=== PATIENT | male | born 1945 | race Caucasian/White ===

== ENCOUNTER 2018-10-29 21:32 | Inpatient (IN) | payer OTHER ==
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
--- NOTE | ~2018-10-29 | EKG ---
[place], [place] ELECTROCARDIOGRAM REPORT NAME: HARISH HOLT UNIT #: [id number] ROOM: 315 DOCTOR: ALEXA DRAFT REPORT BIRTHDATE: [birth year] [facility] Test Date: 2018-11-07 Test Time: 09:43:02 Pat Name: HARISH HOLT Department: Room: [facility] 2 Gender: M Orthopaedic Surgeon: Corina Chow : 1945 Requested By: MIMA HARRIS Order Number: [id number] [place] MD: Feliz Dominguez MD Measurements Intervals [place] Rate: 87 P: 53 ND: 153 QRS: -24 QRSD: 85 T: 52 QT: 350 QTc: 421 Interpretive Statements Sinus rhythm Borderline left axis deviation Electronically Signed On 11-07-2018 21:35:09 PST by Feliz Dominguez MD CM:EKGRPT:ELECTROCARDIOGRAM REPORT [id number] MIMA CUNNINGHAM DRAFT REPORT MIMA HARRIS DO
--- NOTE | ~2018-10-29 | PR ---
[place], [place] PROGRESS NOTE NAME: HARISH HOLT UNIT #: [id number] ROOM: 315 DOCTOR: NICK PARKINSON MD BIRTHDATE: [birth year] DOS: 10/31/2018 CHIEF COMPLAINT: "They tell me I've been doing some strange things like wandering around, not knowing what I am doing." SUMMARY OF THE VISIT: The patient was interviewed as he was sitting in his bedroom in the chair. He engaged readily in conversation. He reports to me that he is feeling well, but he is anxious to get to the bottom of what he perceives to be wrong statements stating that he was wandering around aimlessly in his neighborhood. He did seem to be somewhat confused with time and dates. Otherwise, he was relatively pleasant and cooperative. MENTAL STATUS: He is alert and oriented to self, place, not time. Mood does seem to be somewhat depressed with anxious overtones, but he is redirectable with support. There is no hypomania or charline. There is no gross psychosis. Short term memory is problematic. Otherwise, he is intact. PLAN: Routine screening examinations revealed him to have a low vitamin D level of 14.2. I will treat with vitamin D 5000 International Units daily. His vitamin B12 level is low normal at 292. I will go ahead and treat with a vitamin B12 injection of 1000 mcg IM monthly. I will increase his Exelon capsules from 1.5 mg b.i.d. to 3 mg b.i.d. Continue to support and monitor, engage in individual and estrada milieu activities, returning then to the least restrictive environment when psychiatrically stable. NICK PARKINSON MD CM:PNTRANS [id number] NICK PARKINSON MD 10/31/18 1205 interface
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
--- NOTE | ~2018-10-29 | PR ---
[place], [place] PROGRESS NOTE NAME: HARISH HOLT UNIT #: [id number] ROOM: 315 DOCTOR: NICK PARKINSON MD BIRTHDATE: [birth year] DOS: 11/07/2018 INTERVAL NOTE CHIEF COMPLAINT: "I just want to be with my ." SUMMARY OF THE VISIT: The patient was interviewed in his room. He continues to be fixated on leaving the hospital and being with his . I once again tried to redirect that he is hopefully going to the same alf where she is, but again he reiterated that he would like to be in his trailer with her. He does still seem to be somewhat easily agitated and labile. He is tolerating the current medication regimen well. MENTAL STATUS: He is alert and oriented to person, place, not time. Mood does still seem to be labile. Affect inappropriate. There is no charline, hypomania or psychosis, other than some mild paranoia, short-term memory remains problematic. PLAN: I will increase his nighttime Risperdal from 0.5 mg to 1 mg at bedtime. I will check a Neurontin level in the a.m. Continue to engage in individual and estrada milieu activity, returning to the least restrictive environment when psychiatrically stable. NICK PARKINSON MD CM:PNTRANS [id number] NICK PARKINSON MD 11/07/18 1249 interface
--- NOTE | ~2018-10-29 | PR ---
[place], [place] PROGRESS NOTE NAME: HARISH HOLT UNIT #: [id number] ROOM: 315 DOCTOR: NICK PARKINSON MD BIRTHDATE: [birth year] DOS: 11/02/2018 CHIEF COMPLAINT: "Oh, I thought I was going to be able to go home today, can you make that happen." SUMMARY OF THE VISIT: The patient was interviewed once again as he was resting quietly in bed. He did sit up and sit at the edge of his bed and engaged readily in conversation with me. He did report that he has had the opportunity to talk to his on the phone and he is very homesick and wants to be able to leave the hospital to be with her. He voices no other issues. He does have significant short term memory gaps. He also does seem to be tolerating the current medication regimen well. I see no sedation, somnolence, extrapyramidal symptoms or tardive dyskinesia. MENTAL STATUS: He is alert and oriented to person, place, but not necessarily time. Mood does seem to be strongly trending towards euthymia. Affect is more appropriate. There is no charline or hypomania noted. There is no psychosis noted. Short term memory has gaps, otherwise he is intact. PLAN: I will maximize out his dose of rivastigmine capsules to 6 mg twice daily. Continue to support and redirect. Engage in individual and estrada milieu activity, returning to the least restrictive environment when psychiatrically stable. NICK PARKINSON MD CM:PNTRANS [id number] NICK PARKINSON MD 11/02/18 1402 interface
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
--- NOTE | ~2018-10-29 | DS ---
[place], [place] DISCHARGE SUMMARY NAME: HARISH HOLT UNIT #: [id number] ROOM: 315 DOCTOR: NICK PARKINSON MD BIRTHDATE: [birth year] DOS: 11/09/2018 ADDENDUM CHIEF COMPLAINT: "I'm ready to go allyssa, I'm doing my exercise, so I stay strong." SUMMARY OF THE VISIT: The patient was interviewed as he was sitting in the quiet room by himself. He had earlier been doing some calisthenics. He engaged readily in conversation and reported he is ready to go to his new home. He has resigned himself to this fact. He is hoping that his will be able to move in with him. He voiced no other complaints and reports good sleep and appetite. Discharge would have happened sooner; however, between transportation in [facility] not being ready for the patient, he was held up for 1 day. At this point now he is returning to [facility] with the hope that his will be able to be moved in with him ultimately. MENTAL STATUS AT DISCHARGE: The patient is alert and oriented with significant time gaps. Mood for the most part is euthymic. Affect is appropriate. There is no charline, hypomania or gross psychosis. DISCHARGE DIAGNOSES AND DISPOSITION: As per the discharge summary dictated on 11/08/2018. NICK PARKINSON MD CM:DISCHARG [id number] NICK PARKINSON MD 11/09/18 1146 interface
--- NOTE | ~2018-10-29 | PR ---
[place], [place] PROGRESS NOTE NAME: HARISH HOLT UNIT #: [id number] ROOM: 315 DOCTOR: NICK PARKINSON MD BIRTHDATE: [birth year] DOS: 11/01/2018 INTERVAL NOTE CHIEF COMPLAINT: "Oh, I thought I was gonna go home today, maybe you will still let me go." SUMMARY OF THE VISIT: The patient was interviewed as he was once again in his room. He was lying down, but he got up and sat at the edge of his bed and engaged readily in pleasant conversation. The patient reports that he lives in [place], but nurse's report most recently, he has been residing in [place], [place]. He also reports that he thought he would be ready to leave today. He remains pleasantly confused. He does tend to isolate himself and is not engaging in much of the unit activities. Some of this is because of select peers that are rather loud and boisterous and they do seem to be making him rather uncomfortable. Outwardly, he is tolerating the medication well. I see no sedation, somnolence, extrapyramidal symptoms or tardive dyskinesia. MENTAL STATUS: He is alert and oriented to person, place, not necessarily time. Mood does seem to be trending towards euthymia. Affect is more appropriate. There is some delusional system present. He does process conversation slowly at times and short term memory remains poor. PLAN: I will go ahead and increase his Risperdal from 0.25 mg at bedtime to 0.5 mg at bedtime, attempting to stabilize his mood and decrease any impulsivity. While living at home, the patient had a history of wandering and my hope would be that this will decrease this impulsive type behavior. Additionally, I will increase his Exelon capsules from 3 mg twice daily to 4.5 mg twice daily attempting to impact positively on ADL maintenance, behavior and cognition. Meanwhile, will continue to engage in individual and estrada milieu activity, returning then to the least restrictive environment when psychiatrically stable. NICK PARKINSON MD CM:PNTRANS [id number] NICK PARKINSON MD 11/01/18 1321 interface
--- NOTE | ~2018-10-29 | PR ---
[place], [place] PROGRESS NOTE NAME: HARISH HOLT UNIT #: [id number] ROOM: 315 DOCTOR: NICK PARKINSON MD BIRTHDATE: [birth year] DOS: 11/03/2018 CHIEF COMPLAINT: "I am waiting for the word to get out of here. I want to go back to my own home." SUMMARY OF THE VISIT: The patient was interviewed as he was sitting in his room. He had his clothes folded on his lap. He was very much fixated on leaving here and was very upset that his family, specifically his oldest son would suggest that he and his need long-term care placement. He very angrily told me that he had his own place that his trailer was perfectly fine for he and his to live there. I did attempt to redirect and reorient. I offered him food and drink. Eventually, he did state that he would take a milkshake. Since yesterday evening, the patient has been on what appears to be a hunger strike and he did not eat much dinner if at all and did not have breakfast. He seems horribly distraught at the present time. MENTAL STATUS: The patient is alert and oriented to person, place, but not time. Mood does seem to be very depressed. Affect is flat, blunted with some angry overtones. There is no charline or hypomania. There is no gross psychosis. PLAN: Given the fact that his appetite has diminished and he does require a lot of prompting to eat, I will discontinue his Cymbalta in lieu of Remeron 15 mg at bedtime. This should dramatically improve sleep and appetite. I have discussed the case at length with the treatment team and social service assistant and will attempt to redirect and have family redirect him regarding the possibility of moving into [place] [facility] with his . Hopefully, he will come to at least some acceptance of this as in reasonable alternative. We will continue to support and monitor, engage in individual and estrada milieu activity, returning then to the least restrictive environment when psychiatrically stable. NICK PARKINSON MD CM:PNTRANS 1207 1232 NICK PARKINSON MD 11/03/18 1233 interface
[2018-10-30] MEDS ORDERED: MAGNESIUM OXID400 MG PO (00:35)
[2018-10-30] MEDS ORDERED: ASPIRIN CHEWABL81 MG PO (00:36)
[2018-10-30] MEDS ORDERED: ZOCOR40 MG PO (00:37)
[2018-10-30] MEDS ORDERED: CLOPIDOGREL75 MG PO (00:39)
[2018-10-30] MEDS ORDERED: LEVOTHYROXINE100 MC1 PO (00:41)
[2018-10-30] MEDS ORDERED: OMEPRAZOLE20 M2 PO (00:42)
[2018-10-30] MEDS ORDERED: EFFEXOR XR150 MG PO (00:44)
[2018-10-30] MEDS ORDERED: Ipratropium Brom3 ML INH (00:47)
[2018-10-30] MEDS ORDERED: IMDUR SA60 M1 PO (00:47)
[2018-10-30] MEDS ORDERED: NEURONTIN300 MG PO (00:48)
[2018-10-30] MEDS ORDERED: AMIODARONE HYD200 MG PO (00:52)
[2018-10-30] MEDS ORDERED: SEROQUEL50 MG PO (00:53)
[2018-10-30 12:46] VITALS: BP 126/67
[2018-10-30 12:50] VITALS: BP 126/67
--- NOTE | 2018-10-30 13:43 | NUR ---
JONATHONHARISHWalt 73 year old M admitted via stretcher from the OTHER as a voluntary admission. Arrived on unit at 1201. ALLERGIES: OXYCODONE, PROMETHAZINE. Vital signs are: 98.2-65-16 126/67 SPO2 97%RA. The client'S POA VERBALLY CONSENTED TO THE following forms with stated understanding: Authorization For The Release of Medical Information, Clothing List, Consent to Voluntary Admission and Hospitalization, Consent and Release Forms/Receipt of Rights, Acknowledgement of Advance Directive Information, Behavioral Health Consent Form, and Informed Consent of Medications. Admitted under the services of Dr. TESHA MABRYNICK. A search was conducted and hazardous articles were removed. Client was oriented to the unit. LINDA GONSALES
--- NOTE | 2018-10-30 13:47 | NUR ---
CALL PLACED TO HOSPITALIST CELL NUMBER ONE. DR. LEIGH MADE AWARE OF NEW CONSULT FOR MEDICAL MANAGEMENT.
--- NOTE | 2018-10-30 15:44 | NUR ---
completed psychosocial assessment.
[2018-10-30 15:59] LABS: BILIRUBIN NEGATIVE (NEGATIVE); BLOOD TRACE-INTACT (NEGATIVE); CLARITY CLEAR (CLEAR); COLOR YELLOW (YELLOW); GLUCOSE NEGATIVE (NEGATIVE); KETONE TRACE (NEGATIVE); LEUKO ESTERASE NEGATIVE (NEGATIVE); NITRITE NEGATIVE (NEGATIVE); SPECIFIC GRAVITY 1.025 (1.005-1.030); UROBILINOGEN 0.2 E.U./dl (0.2-1.0)
[2018-10-30 16:24] LABS: BACTERIA TRACE
--- NOTE | 2018-10-30 16:46 | NUR ---
PM GROUP/EXERCISES/MEDITATION/AROMATHERAPY PT ATTENDED GROUP AND PARTICIPATED TO BEST OF ABILITY. PT IS HARD OF HEARING AND HAS ONE GOOD EYE THAT PT STATES "ISN'T REALLY THAT GOOD". PT STILL BECOMING ORIENTED TO UNIT AND STATES "I'M TIRED I JUST WANT A NAP" PT WENT TO TAKE A NAP AND RETURNED THE LAST 10 MINUTES OF GROUP. PT WILL CONTINUE TO BE ENCOURAGED TO ATTEND AND PARTICIPATE IN FUTURE GROUP SESSIONS.
--- NOTE | 2018-10-30 16:48 | NUR ---
PERSONAL DAILY GOAL PT GOAL IS TO CONTINUE TO GET ORIENTED TO UNIT ROUTINE AND SCHEDULE.
--- NOTE | 2018-10-30 17:56 | NUR ---
Consulted with unit staff regarding pt admission and updates. Met with pt and explained his daughter in law Tran came to drop off clothes for pt and passed along that she loved him. She is aware pt does not want to visit or speak with her at this time and pt seemed calm while discussing this. Unable to reach family at this time for additional collateral. Pt appeared content and was alert and oriented and thanked this jingle writer for talk.
[2018-10-30 20:00] VITALS: BP 143/62
--- NOTE | 2018-10-30 21:50 | NUR ---
P---DELUSIONS/CONFUSION I---1:1 DONE IN CLIENTS ROOM. OFFERED TO GET CD PLAYER AND TAKE TO QUIET ROOM FOR HIM. EMOTIONAL SUPPORT PROVIDED. WILL MONITOR R--I AM JUST SO BORED. I CAN'T SEE THE TV BECAUSE OF MY SIGHT. I AM NOT ALLOWED TO HAVE MY IPAD SO I CAN WATCH TV. MAYBE MUSIC TOMORROW. DENIES ANY PROBLEMS, QUESTIONS OR NEEDS P--DISCUSS VISUAL DIFFICULTIES WITH MORNING SHIFT. WILL CONTINUE TO PROVIDE EMOTIONAL SUPPORT AND Q 15 MINUTE SAFETY CHECKS
--- NOTE | 2018-10-31 02:01 | NUR ---
24 HR chart check completed.
--- NOTE | 2018-10-31 05:53 | NUR ---
SLEPT WELL FIRST PART OF SHIFT BUT UP EARLY . SLEPT APPROX 6 HOURS.
--- NOTE | 2018-10-31 06:56 | NUR ---
SYNTHROID TABLET NOT HERE FROM PHARMACY
[2018-10-31 07:05] LABS: BASO % 0.4 % (0.0-1.0); EOS # 0.3 10*3/uL (0.0-0.4); EOS % 3.9 % (1.0-4.0); HEMATOCRIT 32.2 % (42.0-52.0); HEMOGLOBIN 10.5 g/dl (14.0-18.0); LYMPH # 0.5 10*3/uL (1.3-4.4); LYMPH % 6.5 % (27.0-41.0); MEAN CELL VOLUME 101.3 fl (80.0-94.0); MEAN CORPUSCULAR HGB CONC 32.6 g/dl (33.0-37.0); MEAN PLATELET VOLUME 8.9 fl (9.6-12.3); MONO % 12.1 % (3.0-9.0); NEUT # 6.1 10*3/uL (2.3-7.9); NEUT % 76.8 % (47.0-73.0); PLATELET COUNT AUTOMATED 332 10*3/uL (130-400); RED BLOOD COUNT 3.18 10*6/uL (4.50-5.90); RED CELL DISTRI WIDTH 13.2 % (0-14.5); WHITE BLOOD COUNT 7.9 10*3/uL (4.8-10.8)
[2018-10-31 07:21] VITALS: BP 138/71
[2018-10-31 07:33] LABS: ALKALINE PHOSPHATASE 91 U/L (45-117); BUN 34 mg/dl (7-24); CHLORIDE 107 mmol/L (98-107); CHOLESTEROL 137 mg/dL (<200); CREATININE 1.27 mg/dL (0.70-1.30); HDL CHOLESTEROL 52 mg/dl (40-60); LDL CHOLESTEROL 68 mg/dL (9-159); SGOT/AST 15 IU/L (3-35); SGPT/ALT 13 U/L (12-78); SODIUM 140 mmol/L (136-145); TOTAL PROTEIN 6.5 gm/dL (6.4-8.2); TRIGLYCERIDES 84 mg/dl (<150); VLDL CHOLESTEROL 17 mg/dL (6-40)
[2018-10-31 07:57] LABS: VITAMIN D, 25-HYDROXY 14.2 ng/mL (30-100)
--- NOTE | 2018-10-31 08:45 | NUR ---
IP jo ann per Blanca at [facility] for 10 days. LCD/NRD 11/08. Auth # [id number]
--- NOTE | 2018-10-31 10:40 | NUR ---
DR. KIRK ON FLOOR TO ASSESS PATIENT. MADE AWARE OF HGB 10.5, HCT 32.2, VITATMIN D LEVEL 14.2, AND CALCIUM 8.1.
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
--- NOTE | 2018-10-31 11:51 | NUR ---
PERSONAL DAILY GOAL PT WILL LEARN NEW COPING SKILL TO ASSIST WITH THE ISSUES OF AGING. PT FRUSTRATED WITH PAIN, BAD HEARING, AND BAD EYESIGHT.
--- NOTE | 2018-10-31 12:24 | NUR ---
PATIENT RECEIVED VITAMIN B12 IM. PATIENT TOOK THE PROCEDURE VERY WELL. PATIENT STATED "YOU DID A GOOD JOB".
--- NOTE | 2018-10-31 12:30 | NUR ---
Shift chart check completed.
--- NOTE | 2018-10-31 14:14 | NUR ---
PHYSICAL THERAPY 1:1 Time: Pain on a scale of 0-10 > Prior to treatment: soreness through R hip/buttocks Post treatment: soreness through R hip/buttocks Progress note: Pt seen on this date for initial physical therapy assessment; please refer to pt's chart for details. Pt performeds supine<->sit I and sit <-> stand I but slow due to pain in R hip/buttocks. He ambulated 100' x 2 in hallway while holding railing in perez. He demonstrated slight limping reporting due to R hip/ buttock pain. He demonstrated decreased balance in standing and weakness through carlos LEs as well. He will benefit from physical therapy for strengthening carlos LEs, increasing standing dynamic balance, and improving gait and stair negotiation. MUNA KENYON S PT
--- NOTE | 2018-10-31 14:16 | NUR ---
P- PATIENT STATED THAT HE KNOWS THAT AT TIMES HE HEARS THINGS THAT ARE NOT THERE. HE STATED THAT THE VOICES SAY REALLY "DISGUSTING" THINGS TO HIM, THAT HE DOES NOT WISH TO REPEAT. PATIENT REFUSED TO TELL ME WHAT THE VOICES SAY. DENIES ANY COMMAND HALLUCINATIONS. PATIENT ALERT AND ORIENTED X3, UNAWARE OF HIS SITUATION OF WHY HE IS HERE. PATIENT STATED "THEY SAY I WONDER AROUND, I DO NOT BELIEVE THAT". PATIENT ISOLATING SELF TO ROOM. I- 1:1 INTERACTION WITH EMOTIONAL SUPPORT PROVIDED. ASSESSED PATIENT FOR HALLUCINATIONS, DELUSIONS, SI, HI, OR PAIN. ASSESSED FOR COMMAND HALLUCINATIONS. ATTEMPTED TO ASSESS WHAT THE VOICES ARE TELLING THE PATIENT. REORIENT PATIENT TO SITUATION OF WHY HE HIS HERE IN THE HOSPITAL. ENCOURAGE PATIENT TO JOIN GROUP, JOIN ACTIVITIES WITH PEERS, INTERACT WITH PEERS, INTERACT WITH STAFF. PROVIDE PATIENT HIS MEDICATIONS ON TIME WITH EDUCATION PROVIDED. ASSESS PATIENTS MOOD. R- PATIENT READILY ENGAGED IN CONVERSATION WITH STAFF WHEN SPOKEN TO. PATIENT DENIED DELUSIONS, SI, HI, OR PAIN. DENIES ANY OTHER HALLUCINATIONS OTHER THAN AUDITORY HALLUCINATIONS. REFUSED TO TELL THIS NURSE WHAT THE VOICES TELL HIM. DENIES COMMAND HALLUCINATIONS. WHEN REORIENTED PATIENT TO SITUATION PATIENT SMILED AND STATED "I DO NOT BELIEVE IT". PATIENT JOINED ONE GROUP SESSION TOWARDS THE END RIGHT BEFORE LUNCH ARRIVED. NO INTERACTION WITH OTHER PEERS. AFTER LUNCH PATIENT WENT BACK TO HIS ROOM AND LAYING DOWN. WHEN WENT BACK TO ENCOURAGE TO COME TO GROUP AGAIN, PATIENT STATED THAT HE JUST IS NOT UP TO IT. PATIENT WENT FOR A TEN MINUTE WALK DOWN THE HALLWAY, AND WENT BACK INTO HIS ROOM. P- CONTINUE TO MONITOR PATIENTS HALLUCINATIONS AND IF COMMAND HALLUCINATIONS ARE OCCURRING. REORIENT PATIENT TO HIS SITUATION WHEN NECESSARY. ENCOURAGE TO JOIN GROUP AND ACTIVITIES WITH PEERS. ENGAGE IN CONVERSATION WITH STAFF AND PEERS. 1:1 INTERACTION WITH EMOTIONAL SUPPORT WHEN NECESSARY. PROVIDE WITH MEDICATIONS AND THERAPIES PRESCRIBED BY THE PHYSICIAN. Q15 MINUTE CHECKS MAINTAINED FOR SAFETY.
--- NOTE | 2018-10-31 14:32 | NUR ---
Spoke with Patient Daughter Charity concerning Discharge Plans. She is taking a tour of [facility] today and would like referral sent to them for Oxyacetylene Burner Care Placement.
--- NOTE | 2018-10-31 15:18 | NUR ---
HENS Completed online. PASRR submitted successfully. Validation Complete. Document is being referred to [facility] for further review. Faxed Documentation to [facility] . Will Follow.
--- NOTE | 2018-10-31 15:31 | NUR ---
Thao from [facility] calls to say that she received referral and have no available appropriate beds at this time.
--- NOTE | 2018-10-31 15:32 | NUR ---
Call placed to [facility]. Male Beds Available. Referral faxed to [facility].
--- NOTE | 2018-10-31 15:33 | NUR ---
PM GROUP/MOVIE PT CHOSE NOT TO ATTEND GROUP AND SLEPT IN BED. PT WILL CONTINUE TO BE ENCOURAGED TO ATTEND AND PRATICIPATE IN FUTURE GROUP SESSIONS.
[2018-10-31 20:00] VITALS: BP 112/56
--- NOTE | 2018-11-01 00:45 | NUR ---
P---ISOLATIVE/ HELPLESS I--EMOTIONAL SUPPORT. ALLOWED CLIENT TO VENT NEEDS, FEARS AND REQUESTS. ENCOURAGED CLIENT TO STAY OUT OF HIS ROOM DURING THE DAY AND PARTAKE IN THE ACTIVITIES AND THERAPIES THE UNIT IS OFFERING R--OH MY BACK HURT TODAY SO I STAYED IN HERE AND WAS BORED. I WILL SEE TOMORROW WHAT I WANT TO DO P--CONTNUE TO ENCOURAGE CLIENT TO PARTICIPATE IN THERAPY AND GROUPS.
--- NOTE | 2018-11-01 04:36 | NUR ---
24 HR chart check completed.
--- NOTE | 2018-11-01 07:15 | NUR ---
PHYSICAL THERAPY Patient seen this am for therapy visit and was sitting in activity room sofa chair upon therapist arrival. Patient voices no new c/o's and was quite pleasant this morning. Patient treated with [facility] staff observation and transfers all with Supervision. Patient ambulates without AD, 75'x 2, use of single handrail support in hallway, SBA, demonstrating good dioni and no LOB. Patient also completed backward walk, 5'x 2 and several 180 / 360 turns, SBA, with "cautious" upright posture. Patient returned to activity room chair and remained awaiting breakfast under [facility] staff Supervision. Will continue per POC as tolerated, total treatment time 17 minutes. Fede Argueta, CONTROL PANEL TESTER
[2018-11-01 08:06] VITALS: BP 126/68
--- NOTE | 2018-11-01 08:16 | NUR ---
ON UNIT TO ASSESS PT.
--- NOTE | 2018-11-01 08:30 | NUR ---
Treatment Plan meeting with Dr. Horton, RN, AT, SW and Cio. Plan for discharge at the end of the week. Pt. is for Half-Way placement at request of Daughter. Referrals have been sent to [facility] and [facility].
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
--- NOTE | 2018-11-01 12:09 | NUR ---
PERSONAL DAILY GOAL PT DID NOT COME OUT OF HIS ROOM THIS MORNING AND NO GOAL HAS BEEN SET. WILL ATTEMPT THIS AFTERNOON.
--- NOTE | 2018-11-01 12:10 | NUR ---
AM GROUP/FOCUS ON TASK PT DID NOT ATTEND MORNING GROUP THERAPY. PT WAS IN BED SLEEPING.
--- NOTE | 2018-11-01 15:00 | NUR ---
Miriam from [facility] here to see patient onsite. Unable to do Face to Face assessment at this time. Provided with updates. Vincent is currently reviewing the referral.
--- NOTE | 2018-11-01 15:06 | NUR ---
P:ISOLATIVE TO ROOM-ONLY COMING OUT FOR MEALS WITH ENCOURAGEMENT DEPRESSED MOOD I: ENCOURAGE PT TO PARTICIPATE IN GROUPS/ACTIVITES, ENCOURAGE SOCIALIZATION WITH STAFF AND PEERS, PROVIDE EMOTIONAL SUPPORT AND 1:1 FOR PT TO VOICE FEELIGNS R: PT STATED "I WANT TO GO HOME CAN YOU HELP ME WITH THAT? I DON'T WANT TO COME OUT RIGHT NOW." P: CONTINUE TO PROVIDE EMOTIONAL SUPPORT AND 1:! FOR PT TO VIOC[place] FEELINGS, ENCOURAGE PARTICIPATION IN GROUPS/ACTIVITIES, ENCOURAGE SOCIALIZATION WITH STAFF AND PEERS, MONITOR PT BEHAVIORS ON Q15 MIN SAFETY CHECKS PT ALERT TO PERSON, PLACE AND TIME. PT MED COMPLIANT WITHOUT DIFFICULTY, MED EDUCATION PROVIDED. PT CALM, ISOLATIVE TO ROOM, ONLY COMING OUT FOR MEALS WITH ENCOURAGEMENT. PT PLEASANT WITH STAFF. NO HALLUCINAITONS OR DELUSIONS NOTED. PT DENIES ANY HOMICIDAL/SUICIDAL THOUGHTS. PT AMBULATORY, GAIT STEADY. PT CONTINENT OF BOWEL AND BLADDER.
--- NOTE | 2018-11-01 15:49 | NUR ---
PM GROUP/MUSIC AND SOCIALIZATION PT DID NOT ATTEND AFTERNOON GROUP THERPAY. PT STAYED IN ROOM IN BED.
--- NOTE | 2018-11-01 16:41 | NUR ---
Pt demonstrates progress towards goals with HOT DOG VENDOR reporting good progress continues with plan to extend goals at this time until 11/10/18. Garima Rajan, PT
[2018-11-01 19:50] VITALS: BP 128/66
--- NOTE | 2018-11-01 22:25 | NUR ---
P---ISOLATIVE I--MEDICATED PER ORDERS. 1:1 WITH CLIENT TO ALLOW TIME TO VENT NEEDS, FEARS AND WANTS. DISCUSSED IMPORTANCE OF INTERACTING WITH PEERS OR AT LEAST BE IN THE DININGROOM WITH OTHERS WITHOUT INTERACTING. R- OH I AM GOOD. FEEL BETTER SINCE YOU KNOW WHO LEFT. MAYBE I WILL COME OUT TOMORROW P--CONTINUE EMOTIONAL SUPPORT AND ENCOURAGEMENT TO INTERACT. MONITOR FOR ANY CHANGES
--- NOTE | 2018-11-02 01:24 | NUR ---
24 HR chart check completed.
--- NOTE | 2018-11-02 07:30 | NUR ---
PHYSICAL THERAPY Patient seen this am for therapy visit and was in hallway near nurses station upon therapist arrival. Patient had just finished TOBIAS visit as OT Data Support Specialist was present for observation only during entire therapy session. Patient voices no new c/o's and ambulates without AD, 165'x 1, Supervision and demonstrates improved steady gait pattern. Patient still a little cautious during 180 turns and reports mild R hip pain > 125 feet. Patient returned to and remained in activity room chair awaiting breakfast under [facility] staff Supervision. Will continue per POC as tolerated to improve dynamic standing balance with increased activity tolerance. Total treatment time 15 minutes. Fede Argueta, HARD ROCK DRILL OPERATOR
[2018-11-02 08:00] VITALS: BP 130/57
--- NOTE | 2018-11-02 08:30 | NUR ---
Treatment Plan meeting with Dr. Horton RN, AT, SW and Farm Equipment Mechanic Apprentice. Plan for discharge Next week. Referrals have been sent for LTC placement Medicaid Pending.
--- NOTE | 2018-11-02 09:32 | NUR ---
PERSONAL DAILY GOAL INTERPERSONAL INTERACTIONS PT HAS BEEN ISOLATIVE TO ROOM. PT STATED, "I WILL COME TO GROUP TODAY"
--- NOTE | 2018-11-02 12:05 | NUR ---
AM GROUP/CURRENT EVENTS/FOCUS GROUP PT WAS ENCOURAGED TO ATTEND MORNING GROUP THERAPY AND CAME DOWN AND STOOD OUTSIDE THE ROOM LOOKING IN THE WINDOW AT THE GROUP. PT MOTIONED FOR ME TO COME OUT AND STATED, "I AM HARD OF HEARING AND DON'T SEE TOO WELL. DO I HAVE TO COME IN THERE? IT'S JUST TOO HARD FOR ME" PT WAS TOLD THAT HE DID NOT HAVE TO ATTEND BUT THAT I WOULD LIKE HIM TO. PT DECLINED. PT WILL BE FURTHER ENCOURAGED TO ATTEND. PT STATED, "I JUST WANT TO GO HOME TO BE WITH MY AND MY TWO DOGS."
--- NOTE | 2018-11-02 14:38 | NUR ---
Patient not available for Occupational Therapy as he is in group therapy session. Rosemarie Martinez OTR/L
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
--- NOTE | 2018-11-02 15:51 | NUR ---
PM GROUP/CREATIVE OUTLETS PT CHOSE NOT TO ATTEND AFTERNOON GROUP THERAPY. PT CHOSE TO STAY IN BED AND NAP.
--- NOTE | 2018-11-02 17:32 | NUR ---
P: ISOLATIVE TO ROOM, DEPRESSED MOOD I: ENCOURAGE PT TO PARTICIPATE IN GROUPS/ACTIVITIES, ENCOURAGE SOCIALIZATION WITH STAFF AND PEERS, PROVIDE EMOTIONAL SUPPORT AND 1:1 FOR PT TO VOICE FEELINGS R: PT REFUSED TO PARTICIPATE IN GROUPS/ACTIVITIES, ONLY COMING OUT FOR MEALS P: CONTINUE TO ENCOURAGE PT TO PARTICIPATE IN GROUPS/ACTIVITIES, ENCOURAGE SOCIALIZATION WITH STAFF AND PEERS, CONTINUE TO PROVIDE EMOTIONAL SUPPORT AND 1:1 FOR PT TO VOICE FEELINGS PT ALERT TO PERSON, PLACE, TIME AND SITUATION. PT MED COMPLIANT WITHOUT DIFFICULTY, MED EDUCATION PROVIDED. NO HALLUCINATIONS OR DELUSIONS NOTED. PT DENIES ANY SUICIDAL THOUGHTS. PT AMBUALTORY THROUGHOUT UNIT, GAIT STEADY. PT CONTINENT OF BOWEL AND BLADDER.
[2018-11-02 20:02] VITALS: BP 145/65
--- NOTE | 2018-11-02 23:35 | NUR ---
24 HR chart check completed.
--- NOTE | 2018-11-03 06:32 | NUR ---
PATIENT SLEPT 1 HOUR INTERRUPTED THROUGHOUT SHIFT. Q 15 MINUTE CHECKS MAINTAINED
[2018-11-03 08:01] VITALS: BP 160/82
--- NOTE | 2018-11-03 08:30 | NUR ---
Treatment Plan meeting with Dr. Horton, RN, AT, SW and Marine Plumber. Plan for discharge Wednesday if PASRR returns. Refferals have been sent to [facility] and [facility].
--- NOTE | 2018-11-03 08:40 | NUR ---
PT REFUSING TO COMMUNICATE WITH NURSE THIS AM. STATES "I WAS SUPPOSED TO GO HOME TWO DAYS AGO". PT IS ARGUMENTATIVE, SITTING IN CHAIR IN HIS ROOM WITH CLOTHES ON LAP. PT REDIRECTED, ATTEMPTED TO PROVIDED 1:1 AND EDUCATE PT ON CURRENT DISCHARGE STATUS AND POTENTIAL PLACEMENT AT [facility] WITH . PT UNABLE TO BE REDIRECTED. PT IS ANGRY THAT HE IS NOT HERE. CONTINUES TO STATE "JUST CHECK THE PAPERWORK! I'VE BEEN DISCHARGED ALREADY". WILL CONTINUE TO ATTEMPT TO REDIRECT PT NECESSARY. WILL REAPPROACH PT NEEDED. PROVIDE EMOTIONAL SUPPORT FOR PT ALLOWED. ENCOURAGE MEDICATION COMPLIANCE AND VERBALIZATION OF FEELINGS.
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
--- NOTE | 2018-11-03 10:35 | NUR ---
Shift chart check completed.
--- NOTE | 2018-11-03 12:12 | NUR ---
AM GROUP/INTERPERSONAL INTERACTIONS PT REFUSED TO ATTEND MORNING GROUP THERAPY. PT IS VERY IRRATATED TO BE HERE AND JUST WANTS TO GO HOME.
--- NOTE | 2018-11-03 14:18 | NUR ---
Spoke with Eunice at [facility]. Advised her that Dr. Horton had said in Meeting that he had spoken with her and told her that he felt patient was appropriate for [facility] and assured her that patient could return if he developed behaviors at facility. Eunice states that she is willing to accept patient on conditional basis once PASRR returns and to keep her updated of pt. progress here in the Behavioral Health Unit.
--- NOTE | 2018-11-03 15:50 | NUR ---
PM GROUP/STRESS REDUCTION PT WAS SITTING IN HIS ROOM IN A CHAIR AND WAS ENCOURAGED TO PARTICIPATE IN AFTERNOON GROUP. PT DECLINED STATING, "I JUST WANT TO GO HOME, I'M TIRED OF BEING HERE"
[2018-11-03 20:00] VITALS: BP 151/64
--- NOTE | 2018-11-03 23:10 | NUR ---
24 HR chart check completed.
--- NOTE | 2018-11-04 06:21 | NUR ---
PATIENT SLEPT 7 HOURS THROUGHOUT UNINTERRUPTED SHIFT. Q 15 MINUTE CHECKS MAINTAINED
[2018-11-04 08:16] VITALS: BP 138/72
--- NOTE | 2018-11-04 08:30 | NUR ---
Treatment Plan meeting with Dr. Horton, RN, AT, SW and Head Men'S Golf Coach. Plan for discharge Wednesday. Referrals with Updates have been faxed to [facility].
--- NOTE | 2018-11-04 08:35 | NUR ---
PHYSICAL THERAPY Patient seen this am for therapy visit and was sitting in quiet room follwoing OT evaluation upon therapist arrival. Patient reports chronic B knee pain with L > R at 3/10 during prolonged standing actiivities. [facility] staff member present for observation only during therapy session as patient trannsfers sit to stand Independently and ambulates Supervision with single handrail support. Patient states he feels more comfortable holding on to any railing secondary to decreased vision from prior history of Macular Degeneration. Patient demonstrated slow steady stride with no LOB this session x 15O feet and only mild fatigue noted. Patient remained in hallway at window following treatment under [facility] staff Supervision and will continue per POC as tolerated, total treatment time 14 minutes. Fede Argueta, CORRECTIONAL MANAGER
--- NOTE | 2018-11-04 10:30 | NUR ---
Clinical Updates faxed to [facility] and [facility].
--- NOTE | 2018-11-04 11:52 | NUR ---
PATIENT IS ALERT TO PERSON, PLACE AND SITUATION; ABLE TO RECALL MONTH/YEAR WITH SLIGHT CONFUSION. MOOD IS DEPRESSED; ISOLATES IN ROOM AFTER MEALS; ENCOURAGED TO PARTICIPATE IN GROUP SESSION AND TO COME OUT OF ROOM TO SOCIAL WITH STAFF AND OTHER PATIENTS. DENIES ANY HALLUCINATIONS, DELUSIONS, HI/SI OR PAIN. MEDICATION EDUCATION PROVIDED, COMPLAINT WITH MEDICINES. Q 15 MINUTE SAFETY CHECKS MAINTAINED. 1 PERSON ASSIT WITH CUEING FOR ACTIVITIES OF DAILY LIVING, CONTINENT OF BOWEL AND BLADDER, SET UP FOR MEALS, INTAKES ARE IMPROVING; ENCOURAGE PO INTAKES. PATIENT IS INTERACTIVE WITH STAFF. AMBULATORY WITH STEADY GAIT. CONTINUE TO MONITOR FOR HALLUCINATIONS/DELUSIONS. NO AGGRESSION OBSERVED. P: ISOLATIVE/WITHDRAWN STAYS IN ROOM AFTER MEALS I: PROVIDE ONE ONE ONE, ENCOURAGE GROUP PARTICIPATIONS R: PATIENT REMAINS IN ROOM, DID NOT PARTICIPATE IN MORNING GROUP P: CONTINUE TO ENCOURAGE GROUP SESSION AND SOCIAL INTERACTIONS WITH STAFF AND OTHER PATIENTS.
--- NOTE | 2018-11-04 12:00 | NUR ---
PASRR returns. Pt. may enter Nursing facility at discharge. Copy placed on chart.
--- NOTE | 2018-11-04 12:20 | NUR ---
AM GROUP/ EXERCISES/ART/GAME PT DID NOT ATTEND OR PARTICIPATE IN GROUP. PT CONTINUES TO ISOLATE SELF IN ROOM. PT WILL CONTINUE TO BE ENCOURAGED TO ATTEND AND PARTICIPATE IN FUTURE GROUP SESSIONS.
--- NOTE | 2018-11-04 14:31 | NUR ---
Occupational Therapy evaluation completed on 3 with full eval to follow. Precautions include 3N unit precautions, impaired cognition, low vision deficits. Patient is low complexity level 93070 via chart review, testing and evaluation. Recommend no further OT but 24hr supervision and assist in IADLs d/t low vision and impaired cognition. Thank you for this referral. Karon Martinez OTR/L
--- NOTE | 2018-11-04 17:20 | NUR ---
Offered support and counseling regarding loss as pt is struggling to accept going to a [facility] and his going to a [facility] and all of their health deteriorating as well as losing his camper and dogs etc. Pt seemed in better spirits today and was able to communicate more about his feelings. CAlled Rebecca back regarding plan for visitation as well as family planning to bring his in for a visit this weekend. Also indicated pt request for heavy sweats/socks. Some of pts children want to visit prior to flying back to [place]-where they live and pt declined at this time. Informed pt that his will try and come visit this weekend and provided large print word searches and collaborated with associate merchandise planner and nurses regarding updates.
[2018-11-04 19:30] VITALS: BP 117/62
--- NOTE | 2018-11-04 23:47 | NUR ---
P-ISOLATIVE I-1:1 PROVIDED FOR PATIENT TO EXPRESS FEELINGS. PATIENT ALSO EDCUATED ON IMPORTANCE OF INTERACTING WITH PEERS AND STAFF. ENCOURAGE MEDICATION COMPLIANCE. R- PT MEDCIATION COMPLIANT WITHOUT DIFFICULTY. PT ALSO RECEPTIVE TO 1:1 AND EDUCATION, PT STATED "ILL GO INTO THE DINING ROOM MORE IF THEY WOULD MAKE ME A CROSSWORD PUZZLE WITH LARGER LETTERS SO I CAN SEE, IF YOU CAN DO THAT I WOULD APPRECIATE IT". PATIENT MEDICATION COMPLIANT WITHOUT DIFFICULTY.NO AGITATION OR IRRITABILITY NOTED. NO PHYSICAL COMPLAINTS VOICED. P-CONTINUE EMOTIONAL SUPPORT AND ENCOURAGEMENT TO INTERACT, ENCOURAGE MEDICATION COMPLIANCE. Q 15 MIN SAFETY CHECKS.
--- NOTE | 2018-11-05 06:15 | NUR ---
PATIENT OBSERVED ON Q 15 MIN CHECKS TO HAVE SLEPT APPROX 8 HOURS WITH NO AWAKENINGS OR SIGNS AND SYMPTOMS OF DISTRESS NOTED.
--- NOTE | 2018-11-05 06:26 | NUR ---
24 HOUR CHART CHECK COMPLETED.
[2018-11-05 08:00] VITALS: BP 157/82
--- NOTE | 2018-11-05 12:17 | NUR ---
AM GROUP/EXERCISE AND BRAIN GAMES PT CHOSE NOT TO ATTEND MORNING GROUP THERAPY. PT CHOSE TO STAY IN HIS ROOM
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
--- NOTE | 2018-11-05 15:56 | NUR ---
PM GROUP/LEISURE INTERESTS PT CHOSE NOT TO ATTEND AFTERNOON GROUP THERAPY DESPITE ENCOURAGEMENT FROM NURSE. PT CHOSE TO STAY IN ROOM
--- NOTE | 2018-11-05 16:12 | NUR ---
DR MEDINA ON UNIT TO SEE PT
[2018-11-05 20:16] VITALS: BP 142/76
--- NOTE | 2018-11-06 02:12 | NUR ---
P-ISOLATIVE I- PROVIDE 1:1 FOR PATIENT TO EXPRESS FEELINGS, REITERATE IMPORTANCE OF INTERACTING WITH STAFF AND PEERS. ENCOURAGE MEDICATION COMPLIANCE. R- PT MEDICATION COMPLIANT WITHOUT DIFFICULTY AFTER REVIEW. PT VERBALIZED UNDERSTANDING ON IMPORTANCE OF INTERACTING WITH STAFF AND PEERS, STATING "YEAH I GET IT, BUT IM READY FOR BED". NO PHYSICAL COMPLAINTS VOICED. P-CONTINUE EMOTIONAL SUPPORT AND ENCOURAGEMENT TO INTERACT, ENCOURAGE MEDICATION COMPLIANCE. MAINTAIN Q 15 MIN SAFETY CHECKS.
--- NOTE | 2018-11-06 04:24 | NUR ---
24 HOUR CHART CHECK COMPLETED.
--- NOTE | 2018-11-06 06:20 | NUR ---
PATIENT OBSERVED ON Q 15 MIN CHECKS TO HAVE SLEPT APPROX 6 HOURS WITH NO AWAKENINGS OR SIGNS AND SYMPTOMS OF DISTRESS NOTED.
[2018-11-06 07:31] VITALS: BP 136/67
--- NOTE | 2018-11-06 10:47 | NUR ---
ON UNIT TO ASSESS PT.
--- NOTE | 2018-11-06 15:28 | NUR ---
P: PT ISOALTIVE TO ROOM- COMING OUT FOR MEALS, REFUSING TO PARTICIPATE IN GROUP, DEPRESSED MOOD I: ENCOURAGED PT TO PARTICIPATE IN GROUPS/ACTIVITIES, MONITOR PT BEHAVIORS ON Q15 MIN SAFETY CHECKS R: PT CONTINUED TO REFUSE TO PARTICIPATE IN GROUPS/ACTIVITIES, COMING OUT ONLY FOR MEALS P: CONTINUE TO ENCOURAGE SOCIALIZATION WITH STAFF AND PEERS, ENCOURAGE PARTICIPATION IN GROUP PT ALERT TO PERSON, PLACE AND TIME. PT MED COMPLIANT WITHOUT DIFFICUTLY, MED EDUCATION PROVIDED, MED EDUCATION PROVIDED. PT AMBULATORY THROUGHOUT UNIT, GAIT STEADY. PT CONTINENT OF BOWEL AND BLADDER.
--- NOTE | 2018-11-06 16:42 | NUR ---
PM GROUP/EXERCISES/ART/DAILY POSITIVITY PT ENCOURAGERD TO ATTEND BUT REMAINED IN BED AND NEVER CAME TO GROUP. PT WILL CONTINUE TO BE ENCOURAGED TO ATTEND AND PARTICIPATE IN FUTURE GROUP SESSIONS.
--- NOTE | 2018-11-06 16:56 | NUR ---
PT REFUSING TO COME TO DINNER STATED TO ,DEB STAFF "I JUST DON'T KNOW WHAT TO DO." THIS NURSE APPROACHED PT WHO WAS SITTING IN THE CHAIR IN HIS ROOM WITH HIS SHOES ON. WHEN ASKED PT WHAT WAS GOING ON HE STATED "ARE THEY DOWN THERE WITH A WHEELCHAIR? I AM SUPPOSED TO GO HOME TODAY, MY DAUGHTER HAS THE PAPERWORK." ATTEMPTED TO PRESENT REALITY TO PT THAT WE ARE UNABLE TO DISCHARGE ON THE WEEKEND PT STATED "NO MY DAUGHTER HAS THE PAPERWORK IT WAS ALL SET UP." CONTINUED TO PRESENT REALITY WITHOUT SUCCESS, PT STATED "FINE, I'M NOT GOING TO ARGUE WITH YOU." ENCOURAGED PT TO COME TO THE DINING ROOM FOR DINNER, PT STATED "NOT RIGHT NOW". PLAN IS TO CONTINUE TO ENCOURAGE PT TO COME TO THE DINING ROOM FOR DINNER, PROVIDE EMOTIONAL SUPPORT AND 1:1 FOR PT TO VOICE FEELINGS, MONITOR PT BEHAVIORS ON Q15 MIN SAFETY CHECKS.
[2018-11-06 19:53] VITALS: BP 128/69
--- NOTE | 2018-11-07 04:30 | NUR ---
P- ISOLATIVE, ST/LT MEMORY DEFICITS, PT OBSERVED BY STAFF PLACING HIS BELONGINGS UNDER SHIRT AND ATTEMPTING TO GO DOWN HALLWAY X2. PT ALSO STATED TO STAFF STATING "IM WAITING FOR MY TABLE COVER FOLDER". I- PROVIDE 1:1 FOR PATIENT TO VOICE THOUGHTS, FEARS, AND NEEDS. REORIENT AND REDIRECT NEEDED. MONITOR PT BEHAVIORS ON Q15 MIN SAFETY CHECKS. ENCOURAGE MEDICATION COMPLIANCE. R- PATIENT NOT RECEPTIVE TO 1:1 AND REORIENTATION, GUARDED, RETURNS TO ROOM AND BED WHEN APPROACHED BY STAFF. MEDICATION COMPLIANT WITHOUT DIFFICULTY. NO COMPLAINTS VOICED. P- CONTINUE TO PROVIDE 1:1 AND EMOTIONAL SUPPORT. REORIENT AND REDIRECT NEEDED. MONITOR BEHAVIORS ON Q 15 MIN CHECKS.
--- NOTE | 2018-11-07 05:20 | NUR ---
24 HOUR CHART CHECK COMPLETED.
--- NOTE | 2018-11-07 05:53 | NUR ---
PATIENT OBSERVED ON Q 15 MIN CHECKS TO HAVE SLEPT APPROX 3 HOURS INTERRUPTED THIS SHIFT WITH MULTIPLE AWAKENINGS NOTED DURING STAFF CHECKS. PT REDIRECTED X1 TO RETURN TO BED WHEN PATIENT OBSERVED ATTEMPTING TO LAYING ON FLOOR WITH A BLANKET AND PILLOW IN ROOM. NO SIGNS OR SYMPTOMS OF DISTRESS NOTED.
[2018-11-07 08:00] VITALS: BP 131/67
--- NOTE | 2018-11-07 08:15 | NUR ---
Treatment Plan meeting with Dr. Horton, RN, AT, SW and National Account Executive. Plan for discharge Wednesday. Pending Placement at [facility] with his for LTC.
--- NOTE | 2018-11-07 08:46 | NUR ---
RN ENTERED ROOM AND PT PRESENTED BASIN TO HER STATED "I THREW UP", NURSE OBSERVED SMALL EMESIS OF UNDIGESTED FOOD IN BASIN. WILL CONTINUE TO MONITOR.
--- NOTE | 2018-11-07 09:00 | NUR ---
Updates faxed to [facility] Attn:
--- NOTE | 2018-11-07 09:11 | NUR ---
PHYSICAL THERAPY Patient was resting in bed this am when approached by 2 therapist and U staff member. Patient reports feeling very sick, with nausea, upset stomach and recent bout of Emesis. Nurse notified of patient c/o and no therapy provided this date. Will continue per POC as able. Fede Argueta, BUSINESS STRATEGY MANAGER
--- NOTE | 2018-11-07 09:15 | NUR ---
PT CAME TO DESK, ASKING TO CALL HIS DAUGHTER AND THE DOCTOR, PT STATED "I FEEL LIKE I'M HAVING A HEART ATTACK." VS [id number]. NOTIFIFED DR. HARRIS AT 0919- VERBAL ORDERS RECEIVED FOR STAT EKG AND TROPONIN.
--- NOTE | 2018-11-07 09:53 | NUR ---
DR. BELLA NOTIFIED OF EKG RESULT COMPLETED FOR REVIEW.
--- NOTE | 2018-11-07 12:02 | NUR ---
AM GROUP/EXERCISES/GAMES PT ATTENDED LAST 25 MINUTES OF GROUP BUT DID NOT PARTICIPATE. PT ENCOURAGED BUT STATES "I'M BASICALLY BLIND, I CANT DO ANYTHING" PT CONVERSATES WITH PEER THE LAST PART OF GROUP. PT WILL CONTINUE TO BE ENCOURAGED TO ATTEND AND PARTICIPATE TO BEST OF ABILITY IN FUTURE GROUP SESSIONS.
--- NOTE | 2018-11-07 12:31 | NUR ---
P: PT ISOALTIVE TO ROOM, ONLY COMING OUT FOR MEALS, DEPRESSED MOOD I: ENCOURAGED PT TO PARTICIPATE IN GROUPS/ACTIVITIES, ENCOURAGE SOCIALIZATION WITH STAFF AND PEERS R: PT WENT INTO GROUP FOR THE LAST 25 MINS BUT DID NOT PRTICIPATE. P: CONTINUE TO ENCOURAGE SOCIALIZATION WITH STAFF AND PEERS, ENCORUAGE PARTICIPATION IN GROUPS/ACTIVITIES, MONITOR PT BEHAVIORS ON Q15 MIN SAFETY CHECKS PT ALERT TO PERSON, PLACE AND TIME. PT MED COMPLIANT WITHOUT DIFFICULTY, MED EDUCATION PROVIDED. PT CALM, PLEASANT AND COOPERATIVE WITH STAFF. NO HALLUCINATIONS OR DELUSIONS NOTED. PT GOAL DIRECTED TOWARDS DISCHARGE STATING "I JUST WANT TO GO AND SEE MY ". PT DENIES ANY SUICIDAL/HOMICIDAL THOUGHTS. PT AMBULATORY THROUGHOUT UNIT, GAIT STEADY. PT CONTINENT OF BOWEL AND BLADDER.
--- NOTE | 2018-11-07 12:38 | NUR ---
Spoke with Eunice at [facility]. Unable to accept patient at this time due to exit seeking behaviors. Facility has no [facility] and she feels that Pt. is a risk for elopement. Spoke with Miriam at [facility] who is reviewing Referral that was previously sent.
--- NOTE | 2018-11-07 14:02 | NUR ---
Spoke with Miriam at [facility]. Pt. accepted at [facility]. Advised Pt. Power of Watch Repairer Charity Vuong of acceptance to [facility]. Faxed Updates to [facility] Attn: Miriam.
--- NOTE | 2018-11-07 16:07 | NUR ---
PM GROUP/ LEISURE ACTIVITY PT ATTENDED LAST 10 MINUTES OF GROUP LISTENING TO [employer] MUSIC. PT WILL CONTINUE TO BE ENCOURAGED TO ATTEND AND PARTICIPATE IN FUTURE GROUP SESSIONS
[2018-11-07 20:08] VITALS: BP 132/84
--- NOTE | 2018-11-07 23:15 | NUR ---
P-CONFUSION AND AGITATION. PATIENT WITH SHORT TERM AND ENERGY ADMINISTRATOR MEMORY LOSS. PATIENT WITH NO SUICIDAL OR HOMICIDAL IDEATIONS. PATIENT WITH NO HALLUCINATIONS OR DELUSIONS. PATIENT PREOCCUPIED WITH GOING HOME. PATIENT AGITATED AT HS STATING HE WANTED TO GO HOME AND COMPLAINING OF HIS STOMACH BEING UPSET. I-REDIRECTION WITH 1:1 INTERVENTIONS AND PRESENT REALITY ORIENTATION. EDUCATE AND ENCOURAGE MEDICATION COMPLIANCE R-REDIRECTION WITH 1:1 AND REALITY PRESENTATION EFFECTIVE FOR SHORT PERIODS OF TIME. PATIENT REMINDED THAT HIS WAS NOT AT HOME AT THIS TIME. PATIENT STATED "I JUST WANT TO GET OUT OF HERE TO BE WITH MY ". PATIENT WITH COMPLAINT OF HIS STOMACHE BEING UPSET. MAALOX GIVEN TO PATIENT WITH EFFECTIVE RESULTS AT THIS TIME. PATIENT MEDICATION COMPLAINT. PATIENT CONTINENT OF BLADDER AT THIS TIME. PATIENT AMBULATING ON UNIT WITH STEADY GAIT AND WITHOUT ASSISTIVE DEVICE. P-CONTINUE MEDICATION COMPLIANCE, CONTINUE TO REALITY PRESENTATION, ENCOURAGE GROUP THERAPY WHILE AWAKE
--- NOTE | 2018-11-08 00:11 | NUR ---
24 HR chart check completed.
--- NOTE | 2018-11-08 01:55 | NUR ---
PATIENT WITH COMPLAINT OF HAVING STOMACHE PAIN. POSITIVE BOWEL SOUNDS X 4 QUADRANTS. MEDICATED WITH TYLENOL 650MG. TYLENOL EFFECTIVE AT THIS TIME. PATIENT RESTING IN BED
--- NOTE | 2018-11-08 05:45 | NUR ---
PATIENT SLEPT 6 HOURS INTERRUPTED SLEEP THROUGHOUT SHIFT. Q 15 MINUTE CHECKS MAINTAINED
--- NOTE | 2018-11-08 07:40 | NUR ---
PHYSICAL THERAPY Patient seen this am for therapy visit and was coming out of his room upon therapist arrival. OT assistant family teacher was present for observation only this session and states he is feeling a little better this morning with decreased c/o upset stomach. Patient ambulates without AD, Supervision, 125'x 1, with use of single handrail support, demonstrating several bouts of unsteady gait patten. Patient unable to tolerate single leg stance with immediate LOB each side when attmepted and no LOB during eyes open/closed. Patient returned to activity room table awaiting breakfast under [facility] staff Supervision. Will continue per POC as tolerated, total treatment time 14 minutes. Fede Argueta, CAR TRACER
[2018-11-08 07:57] VITALS: BP 128/64
--- NOTE | 2018-11-08 08:00 | NUR ---
Treatment Plan meeting with Dr. Horton, RN, AT and fourdrinier tender. Plan for discharge today if precert returns for [facility].
[2018-11-08] MEDS ORDERED: VITAMIN D5000 UNI1 PO (09:44)
[2018-11-08] MEDS ORDERED: RISPERIDONE1 MG PO (09:44)
[2018-11-08] MEDS ORDERED: RIVASTIGMINE TAR3 M1 PO (09:44)
[2018-11-08] MEDS ORDERED: B121000 MCG/1 IM (09:44)
[2018-11-08] MEDS ORDERED: MEMANTINE HCL10 MG PO (09:44)
[2018-11-08] MEDS ORDERED: MIRTAZAPINE15 M2 PO (09:44)
--- NOTE | 2018-11-08 11:45 | NUR ---
ON UNIT TO ASSESS PT.
--- NOTE | 2018-11-08 11:52 | NUR ---
P: PT ISOALTIVE TO ROOM, COMING OUT ONLY FOR MEALS, DEPRESSED MOOD I: ENCOURAGE SOCIALIZATION WITH STAFF AND PEERS, ENCOURAGE PT TO PARTICIPATE IN GROUPS/ACTIVITIES R:PT REFUSED TO PARTICIPATE IN AM GROUP STATING "NAH MAYBE LATER" P: CONTINUE TO ENCOURAGE PARTICIPATION IN GROUPS, ENCOURAGE SOCIALIZATION PT ALERT TO PERSON, PLACE AND TIME. PT MED COMPLIANT WITHOUT DIFFICUTLY, MED EDUCATION PROVIDED. PT CALM, GOAL DIRECTED TOWARDS DISCAHRGE STATING "I JUST WANT TO GO SEE MY ". NO HALLUCINATIONS OR DELSUIONS NOTED. PT DENIES ANY SUICIDAL/HOMICIDAL THOUGHTS. PT AMBUALTORY THROUGHOUT UNIT, GAIT STEADY. PT CONTINENT OF BOWEL AND BLADDER. PT SHOWERED THIS SHIFT WITH STANDBY ASSSIT FROM STAFF.
--- NOTE | 2018-11-08 11:59 | NUR ---
AM GROUP/EXERCISE AND ART PT ENTERED GROUP LATE BUT DID PARTICIPATE A LITTLE IN THE MASTERS BAG TOSS. PT CHOSE NOT TO PARTICIPATE IN THE ART DUE TO VISION PROBLEMS BUT SAT AND LISTENED TO THE MUSIC. PT EXHIBITED NO AGITAION OR AGGRESSION DURING GROUP. PT IS LOOKING FORWARD TO BEING DISCHARGED TODAY.
--- NOTE | 2018-11-08 15:43 | NUR ---
PM GROUP/STRESS REDUCTION PT CHOSE NOT TO ATTEND AFTEROON GROUP THERAPY. PT ASKED FOR A CUP OF COFFEE AND IF IT WAS OKAY TO REST IN A QUIET ROOM.
[2018-11-08 20:00] VITALS: BP 129/65
--- NOTE | 2018-11-08 23:10 | NUR ---
P-CONFUSION AND DEPRESSED MOOD. PATIENT WITH SHORT TERM OR LONG-TERM MEMORY DEFICITS. PATIENT ISOLATIVE TO QUIET ROOM AND PRIVATE ROOM THROUGHOUT SHIFT. PATIENT STATING "I WANT TO GO HOME" I-REDIRECTION WITH 1:1 INTERVENTIONS AND PRESENT REALITY ORIENTATION. EDUCATE AND ENCOURAGE MEDICATION COMPLIANCE R-REDIRECTION WITH 1:1 AND REALITY PRESENTATION EFFECTIVE FOR SHORT PERIODS OF TIME DUE TO PATIENT COGNITION. PATIENT ENCOURAGED TO INTERACT WITH PEERS BUT PATIENT VERBALIZED "I DON'T WANT TO RIGHT NOW. I JUST WANT TO GO LAY DOWN" P-CONTINUE MEDICATION COMPLIANCE, CONTINUE REALITY PRESENTATION, ENCOURAGE GROUP THERAPY WHILE AWAKE
--- NOTE | 2018-11-09 01:18 | NUR ---
24 HR chart check completed.
--- NOTE | 2018-11-09 06:12 | NUR ---
PATIENT SLEPT 7 HOURS OF INTERRUPTED SLEEP THROUGHOUT SHIFT. Q 15 MINUTE CHECKS MAINTAINED
[2018-11-09 08:32] VITALS: BP 138/79
--- NOTE | 2018-11-09 09:30 | NUR ---
PHYSICAL THERAPY Patient seen this am for therapy visit and was sitting in activity room chair upon therapist arrival. Patient reports feeling just a little bit better, but still having some upset stomach discomfort. U staff present for observation only during therapist treatment as patient completed seated B LE therex, all planes x 20 reps each to increase LE strength. Patient also performed multiple sit to stand transfers SBA, demonstrating initial rise unsteady balance. Patient received v/c and was able to improve with emphasis on "collecting" himself prior to gait. Patient remained in chair under [facility] staff Supervision. Will continue per POC as tolerated, total treatment time 16 minutes. Fede Argueta, BRAZING MACHINE FEEDER
--- NOTE | 2018-11-09 09:55 | NUR ---
Spoke with Miriam at [facility]. Advised of Pt. discharge and pt. is set to discharge. Advised that Level of Care Has been submitted and faxed to [facility]. Provided with Clinical Updates.
--- NOTE | 2018-11-09 11:29 | NUR ---
AND 0N UNIT TO SEE PT AT THIS TIME, AWARE OF DISCHARGE FOR TODAY.
--- NOTE | 2018-11-09 11:38 | NUR ---
Level of Care Faxed to Chrissy Nolen at [facility]. fAX [phone].
--- NOTE | 2018-11-09 12:07 | NUR ---
AM GROUP/EXERCISE AND BALL TOSS PT WAS IN QUIET ROOM WHEN INVITED TO GROUP. PT WAS VERY AGITATED AND STATED, "MY SON AND DAUGHTER WERE JUST HERE AND YOU NEED TO TAKE ME DOWN STAIRS RIGHT NOW SO I CAN GO!" PT COULD NOT BE REDIRECTED. PT SAT DOWN AND WAS GIVEN SPACE
--- NOTE | 2018-11-09 12:50 | NUR ---
Faxed Discharge Summary and Medication List to [facility].
--- NOTE | 2018-11-09 13:03 | NUR ---
Met with tx team and discussed pt going to [facility] upon discharge and hopefully his can transfer there so they can be together which is current plan.
--- NOTE | 2018-11-09 13:21 | NUR ---
SPOKE TO REQUESTED HOME MEDS BE RECONCILED FOR DISCHARGE.
--- NOTE | 2018-11-09 15:00 | NUR ---
Transportation arranged with [facility] to pick patient up and transport to [place] with pepper picker time 7:30 p.m. Spoke with Patient Daughter Charity uVong and notified of discharge time.
--- NOTE | 2018-11-09 15:33 | NUR ---
PRN MAALOX 30ML PO GIVEN AT THIS TIME FOR C/O GI DISCOMFORT. WILL MONITOR FOR EFFECTIVENESS.
--- NOTE | 2018-11-09 16:37 | NUR ---
Pt was distressed per report and this justowriter operator met with pt and offered support and comfort and empathetic listening and pt expressed emotions including grief and anger at having to go into a retirement and not being able to go home. Pt expressed he had a meeting with his children on and stated he did not want to go to a retirement until he absolutely could not care for his and he believes he is still able to do so. Clarified with land planner the official word from [facility] and plan and she responded ambulance is coming at 730pm as it is approved. Pt also expressed issue with hiccups and asked for something to help with them and asked for a cigerette and this justowriter operator provided support and validation as well as normalization and reminded pt at discharge tonight at 730pm he could talk to retirement about smoking privileges. Pt denied patch but stated he would take mediation for hiccups. Pt notified nurses who stated they will provide medication for pts request/concern and confirmed pt did take it.
--- NOTE | 2018-11-09 16:56 | NUR ---
Shift chart check completed.
--- NOTE | 2018-11-09 17:10 | NUR ---
MAALOX HAS BEEN EFFECTIVE, PT VOICES NO FURTHER COMPLAINTS.
--- NOTE | 2018-11-09 18:54 | NUR ---
NURSE TO NURSE REPORT GIVEN TO SLOAN AT [facility].
--- NOTE | 2018-11-09 19:03 | NUR ---
P- CONFUSION, ISOLATIVE TO ROOM WITH THE EXCEPTION OF MEALS. DEPRESSED MOOD, I- ORIENTATION, MOOD AND BEHAVIOR ASSESSED. ASSESSED PT FOR SI/HI, INTENT OR PLAN. ASSESSED PT FOR S/S HALLUCINATIONS, PARANOIA/DELUSIONS. MEDICATIONS ADMINISTERED PER PHYSICIAN'S ORDERS. ADL CARE COMPLETED BY PT. ENCOURAGED PT TO ATTEND AND PARTICIPATE IN [facility] GROUPS AND ACTIVITIES. R- PT IS ALERT AND ORIENTED TO PERSON, PLACE, APPROXIMATE TIME AND SITUATION. ST/LT MEMORY GAPS NOTED. RESPS EASY AND EVEN ON ROOM AIR. MOOD IS DEPRESSED, PT ISOLATIVE TO ROOM. PT STATES HE KNOWS HE IS GOING TO A RESIDENTIAL AND IS UPSET THAT HE CAN'T GO BACK TO HIS TRAILER. NO AGGRESSIVE BEHAVIORS NOTED. PT IS MEDICATION COMPLIANT WITHOUT DIFFICULTY. PT DENIES SI/HI, INTENT OR PLAN. PT DENIES HALLUCINATIONS, NO RESPONSE TO INTERNAL STIMULI NOTED. NO PARANOIA/DELUSIONS NOTED. P- PLAN TO CONTINUE CURRENT TX, FINALIZE DISCHARGE PROCESS.
--- NOTE | 2018-11-09 20:35 | NUR ---
Collaborated with nurses who stated the ambulance was still not there and pt was getting agitated. Called [facility] who indicated there was an emergency run and they would get cleared and be on their way. This public relations writer asked if [facility] could please call the nurses's station and explained pt is anxious about departure and they agreed so this public relations writer provided phone number to unit. Then informed pt about the emergency but confirmed ambulance is coming but likely an hour or so later than planned. Reassured pt that he would be with his tomorrow as she is transferring then and pt stated he thought his would be there tonight so got upset about that. Pt expressed frustration appropriately. This public relations writer called [facility] to provide update on situation and she talked with pt but told him that his dogs were sent to a couple in [place] so pt became more upset and stated "you should've just taken them out back and shot them". He became upset and stated he no longer wanted to talk to his daughter. This public relations writer obtained number for from Charity and informed Charity it was too much change and bad news all at once likely. This public relations writer called pts for pt and they spoke and pt seemed somewhat glad to talk to her. Pt expressed feeling defeated and this public relations writer offered support and encouragement as well as empathetic listening about how difficult this all is. Pt stated, "I'm going to pray the lord take me tonight". Nurses and milieu informed of these updates. Pt provided reassurance and stated he would not harm himself but he's feeling like things are never going to be the same. Pt denied SI/HI. This public relations writer called [facility] and provided an update on pts recent phone calls and reasons for feeling upset as it was a lot of information at once and the ambulance is running late. This public relations writer asked if pt could smoke upon arrival and the nurse Flower Araujo at [facility] stated she would check but due to cold temperatures all of the residents already had their last smoke. This public relations writer advocated if it is safe and possible it seems like it is one thing the pt identified that would be helpful. And wanted to ensure his nurse knew the updates about his feelings of loss related to having to come to a fpc, his not arriving until tomorrow, knowing he is losing his camper, knowing he is losing his dogs whom he loves dearly and feeling powerless with all of these decisions. Flower confirmed pt is ambulatory. This public relations writer thanked nurse in advance for listening to updates for continuity of care and for helping pt transition to his new home environment.
[2018-11-09 20:38] VITALS: BP 127/60
--- NOTE | 2018-11-09 22:40 | NUR ---
NOTIFIED FLORIN AT [facility] THAT CLIENT JUST LEFT UNIT VIA [facility]. ALL MEDICATIONS GIVEN FOR THE NIGHT. ALL PAPERWORK AND PERSONAL ITEMS GIVEN TO AMBULANCE PERSONEL.
--- NOTE | 2018-11-10 07:28 | NUR ---
PHYSICAL THERAPY CO-SIGN I approve of the Phyical Therapy notes written above. DANNIELLE AGUILAR PT
--- NOTE | 2018-11-10 09:11 | NUR ---
Discharge clinicals given to Patience at [facility]. All days approved. Auth # [id number]
[2018-11-10 10:09] LABS: NEURONTIN (GABAPENTIN) 3.1 ug/mL (4.0-16.0)
[2019-03-11] MEDS ORDERED: REMERON30 M1 PO (22:19)
[2019-03-11] MEDS ORDERED: SENNA8.6 MG PO (22:21)
[2019-03-11] MEDS ORDERED: TRAMADOL HCL50 MG PO (22:29)
[2019-03-11] MEDS ORDERED: COLACE100 MG PO (22:35)
[2019-03-11] MEDS ORDERED: TAB-A-VITE1 EACH PO (22:37)
[2019-03-23] MEDS ORDERED: MEMANTINE HCL10 MG PO (08:47)
[2019-03-23] MEDS ORDERED: ABILIFY20 MG PO (08:47)
[2019-03-23] MEDS ORDERED: RIVASTIGMINE TAR3 M1 PO (08:47)
[2019-03-23] MEDS ORDERED: MIRTAZAPINE15 M2 PO (08:47)
[2019-03-23] MEDS ORDERED: ARTHRITIS PAIN57 GM T (08:47)
== END 2018-11-09 22:42 | DRG 883 ==
LOC: 3N 21:32
PROVIDERS: Nurse Practitioner Women's Health; ADMIT Psychiatry & Neurology Psychiatry
DX: F63.81 Intermittent explosive disorder (principal); F23 Brief psychotic disorder; F33.3 Major depressive disorder, recurrent, severe with psychotic symptoms; G30.9 Alzheimer's disease, unspecified; E03.9 Hypothyroidism, unspecified; G62.9 Polyneuropathy, unspecified; F02.80 Dementia in other diseases classified elsewhere, unspecified severity, without behavioral disturbance, psychotic disturbance, mood disturbance, and anxiety; D47.3 Essential (hemorrhagic) thrombocythemia; N40.0 Benign prostatic hyperplasia without lower urinary tract symptoms; D64.9 Anemia, unspecified; I25.10 Atherosclerotic heart disease of native coronary artery without angina pectoris; I10 Essential (primary) hypertension; E78.5 Hyperlipidemia, unspecified; H35.30 Unspecified macular degeneration; F41.9 Anxiety disorder, unspecified; J44.9 Chronic obstructive pulmonary disease, unspecified; I25.2 Old myocardial infarction; Z91.5 Personal history of self-harm; Z90.49 Acquired absence of other specified parts of digestive tract; Z71.6 Tobacco abuse counseling; Z95.5 Presence of coronary angioplasty implant and graft; Z82.49 Family history of ischemic heart disease and other diseases of the circulatory system; Z80.0 Family history of malignant neoplasm of digestive organs; Z83.2 Family history of diseases of the blood and blood-forming organs and certain disorders involving the immune mechanism; Z88.6 Allergy status to analgesic agent; Z79.82 Long term (current) use of aspirin; Z79.899 Other long term (current) drug therapy; Z79.02 Long term (current) use of antithrombotics/antiplatelets